=== PATIENT | female | born 2000 | race Caucasian/White ===

== ENCOUNTER 2022-04-21 14:15 | Inpatient (IN) ==
[~2022-04-21 14:15] MED LIST: *HR* Nalbuphine 10 MG/ML AMPUL IV PRN; Azithromycin 500 MG in 0.9 % Sodium Chloride 250 ML IVPB PRN; Famotidine 20 MG/2 ML VIAL IVP PRN; Lidocaine 1% 20 ML MDV INFILT PRN; Metoclopramide 10 MG/2 ML VIAL IVP PRN; Naloxone 0.4 MG/ML INJ IVP PRN; Ondansetron 4 MG/2 ML VIAL IVP PRN; Ringers Solution, Lactated 1,000 ML IVC SCH
[2022-04-21 14:35] LABS: Basophils % 0.1 %; Hematocrit 37.1 % (35.3-44.9); Immature Granulocytes % 0.6 % (0-4); Lymphocytes # 0.9 K/mcL (0.6-4.6); Lymphocytes % 5.9 %; Mean Corpuscular Hemoglobin 29.4 pg (28.0-33.3); Mean Corpuscular Volume 83.9 fL (83.0-100.0); Mean Platelet Volume 11.2 fL (9.4-12.4); Monocytes # 1.1 K/mcL (0.0-1.3); Neutrophils # 13.4 K/mcL (1.6-8.9); Platelet Count 164 K/mcL (140-400); Red Blood Count 4.42 M/mcL (3.82-4.97); Red Cell Distribution Width 12.9 % (11.5-14.5); Segmented Neutrophils % 86.4 %; White Blood Count 15.5 K/mcL (4.3-11.1)
[2022-04-21] MEDS ORDERED: EPHEDrine 50 MG/ML VIAL IVP PRN (14:37)
[2022-04-21] MEDS ORDERED: *HR* FentaNYL (PF) 100 MCG/2 ML VIAL ONE ×2 (14:40→19:13)
[2022-04-21] MEDS ORDERED: Epidural Premix (fent/bupiv) 110 ML EP ONE (14:45)
[2022-04-21] MEDS ORDERED: Epidural Premix (fent/bupiv) 110 ML EP SCH (14:45)
[2022-04-21 14:51] LABS: Alanine Aminotransferase 13 Units/L (7-52); Aspartate Amino Transferase 11 Units/L (13-39); BUN/Creatinine Ratio 11 (6-26); Blood Urea Nitrogen 7 mg/dL (6-20); Lactate Dehydrogenase 129 Units/L (140-271); Uric Acid 6.1 mg/dL (2.3-7.6); eGFR For African Americans > 60 (> 60); eGFR For Non-African Americans > 60 (> 60)
[2022-04-21 15:07] LABS: Influenza A PCR Negative (Negative); Influenza B PCR Negative (Negative); Resp. Syncytial Virus PCR Negative (Negative); SARS-CoV-2 by PCR (In House) Negative (Negative)
[2022-04-21] MEDS ORDERED: Gentamicin 400 MG in 0.9 % Sodium Chloride 100 ML IVPB ONE (16:09)
[2022-04-21] MEDS ORDERED: Ampicillin 2,000 MG in 0.9 % Sodium Chloride Mini Bag 100 ML IVPB SCH (17:00)
[2022-04-21 17:23] LABS: Amphetamine Screen,Urine Negative ng/mL (Cutoff=1000); Barbiturate Screen,Urine Negative ng/mL (Cutoff=200); Benzodiazepines Screen,Urine Negative ng/mL (Cutoff=200); Cannabinoid Screen,Urine Negative ng/mL (Cutoff = 50); Cocaine Screen,Urine Negative ng/mL (Cutoff= 300); Creatinine,Urine 101 mg/dL; Opiate Screen,Urine Negative ng/mL (Cutoff=300); Phencyclidine Screen,Urine Negative ng/mL (Cutoff=25); Protein/Creatinine Ratio,Urine 0.17 mg/mg (0.00-0.20)
[2022-04-21 18:02] LABS: Varicella Zoster IgG Antibody Negative
[2022-04-21 18:14] LABS: Hepatitis B Surface Antigen Nonreactive (Nonreactive)
[2022-04-21 18:43] LABS: HIV-1&2 Antibody & p24 Ag Nonreactive (Nonreactive)
[2022-04-21] MEDS ORDERED: CeFAZolin 2,000 MG/120 ML BAG IVPB ONE (18:45)
[2022-04-21] MEDS ORDERED: Lidocaine/EPI 1:200k 2% PF 20 ML VIAL ONE (18:45)
[2022-04-21] MEDS ORDERED: Oxytocin 30 UNIT/503 ML BAG IVC ONE (18:46)
[2022-04-21] MEDS ORDERED: *HR* Midazolam HCl 2 MG/2 ML VIAL ONE (19:14)
[2022-04-21] MEDS ORDERED: Ondansetron 4 MG/2 ML VIAL ONE (19:17)
[2022-04-21] MEDS ORDERED: *HR* Labetalol 20 MG/4 ML SYRINGE IVP ONE (19:21)
[2022-04-21] MEDS ORDERED: *HR* Morphine Sulfate/PF 10 MG/10 ML AMPUL ONE (19:22)
[2022-04-21] MEDS ORDERED: Acetaminophen IV 1,000 MG/100 ML BAG IVPB ONE (19:30)
[2022-04-21] MEDS ORDERED: Acetaminophen 325 MG TABLET PO ONE (21:32)
[2022-04-21] MEDS ORDERED: Ringers Solution, Lactated 1,000 ML IVC SCH (22:45)
[2022-04-21] MEDS ORDERED: Oxytocin 30 UNIT/503 ML BAG IVC SCH (22:45)
[2022-04-21] MEDS ORDERED: Ondansetron 4 MG/2 ML VIAL IVP PRN (22:45)
[2022-04-21] MEDS ORDERED: Metoclopramide 10 MG/2 ML VIAL IVP PRN (22:45)
[2022-04-21] MEDS ORDERED: Rho Immune Globulin 1,500 UNIT SYRINGE IM ONE (22:45)
[2022-04-21] MEDS: Ibuprofen 600 MG TABLET PO SCH (23:17)
[2022-04-22] MEDS: *HR* OxyCODONE Immed Rel 5 MG TABLET PO PRN ×3 (04:05→21:33)
[2022-04-22] MEDS: Acetaminophen 325 MG TABLET PO SCH ×3 (04:05→20:52)
[2022-04-22 05:22] LABS: Basophils % 0.1 %; Eosinophils % 0.1 %; Hematocrit 28.9 % (35.3-44.9); Immature Granulocytes % 0.8 % (0-4); Lymphocytes # 0.8 K/mcL (0.6-4.6); Mean Corpuscular HGB Conc 34.3 g/dL (31.6-35.5); Mean Corpuscular Hemoglobin 29.4 pg (28.0-33.3); Mean Corpuscular Volume 85.8 fL (83.0-100.0); Mean Platelet Volume 10.9 fL (9.4-12.4); Monocytes # 0.8 K/mcL (0.0-1.3); Monocytes % 5.7 %; Platelet Count 108 K/mcL (140-400); Red Blood Count 3.37 M/mcL (3.82-4.97); Red Cell Distribution Width 13.2 % (11.5-14.5); Segmented Neutrophils % 87.3 %; White Blood Count 13.7 K/mcL (4.3-11.1)
[2022-04-22 05:26] LABS: Hemoglobin 9.9 g/dL (11.5-15.4)
[2022-04-22] MEDS: Piperacillin/Tazobactam 3.375 GM in 0.9 % Sodium Chloride Mini Bag 100 ML IVPB SCH ×2 (05:44→18:19)
[2022-04-22] MEDS: Ibuprofen 600 MG TABLET PO SCH ×3 (05:44→20:52)
[2022-04-22 06:08] LABS: Platelet Estimate Slight Decrease (Normal)
[2022-04-22] MEDS: Prenatal Vit/FA 1 EACH TABLET PO SCH (08:04)
[2022-04-22] MEDS ORDERED: cephALEXin 500 MG CAPSULE PO SCH (09:00)
[2022-04-22] MEDS ORDERED: metroNIDAZOLE 500 MG TABLET PO SCH (09:00)
[2022-04-22] MEDS ORDERED: Rho Immune Globulin 1,500 UNIT SYRINGE IM ONE (14:15)
[2022-04-22] MEDS: Simethicone 80 MG TAB.CHEW PO PRN (20:52)
[2022-04-23] MEDS: Ibuprofen 600 MG TABLET PO SCH ×2 (03:50→11:06)
[2022-04-23] MEDS: Acetaminophen 325 MG TABLET PO SCH ×3 (03:50→11:06)
[2022-04-23] MEDS: Piperacillin/Tazobactam 3.375 GM in 0.9 % Sodium Chloride Mini Bag 100 ML IVPB SCH (05:36)
[2022-04-23 07:40] VITALS: BP 101/67; PULSE 93; TEMP 98.7; O2SAT 95
[2022-04-23] MEDS: Simethicone 80 MG TAB.CHEW PO PRN (07:43)
[2022-04-23] MEDS: Prenatal Vit/FA 1 EACH TABLET PO SCH (07:43)
== END 2022-04-23 13:30 | disposition home or self-care (01) | DRG 788 ==
LOC: 1NENULAB → 1NENUOBS 22:38
PROVIDERS: ADMIT Advanced Practice Midwife; ATTEND Advanced Practice Midwife